=== PATIENT | male | born 1945 | race Caucasian/White ===

== ENCOUNTER 2018-05-07 20:32 | Emergency (ER) | payer MEDICARE ==
[~2018-05-07] VITALS: Ht 172.7 cm; Wt 77.1 kg
[2018-05-07 20:43] VITALS: BP 147/93
[2018-05-07] MEDS ORDERED: DEXAMETHASONE 4 MG TABLET PO ONE (21:15)
[2018-05-07] MEDS ORDERED: BUPIVAC MPF-EPI 0.5%-1:200000 30 ML VIAL. INJ ONE (21:15)
[2018-05-07] MEDS ORDERED: CLINDAMYCIN HCL 150 MG CAPSULE. PO ONE (21:15)
--- NOTE | 2018-05-07 22:46 | PHYS DOC ---
Past Medical History Past Medical History: COPD, Other Additional Past Medical Histor: chronic back pain Past Surgical History: No Surgical History Additional Past Surgical Histo: PT UNABLE TO RESPOND Alcohol Use: None Drug Use: None Adult General Chief Complaint Chief Complaint: DENTAL PROBLEM HPI HPI Patient is a 72 year old male who presents to the ER with complaint of left upper dental pain with painful swollen area of gums for the last 3 days. Pt states he has been taking his hydrocodone that is prescribed for chronic back pain for relief of the pain and he is out of his pain medication. Pt states he is not able to have more pain meds prescribed by his pain doctor until next week. He has been unable to have the tooth extracted because he does not have full payment up front for the dentist. Pt denies any nausea, vomiting, or fever. Review of Systems Review of Systems Constitutional: Denies fever or chills [] HENT: Denies nasal congestion or sore throat, reports left upper dental pain x3 days[] Respiratory: Denies change in cough or shortness of breath reports hx of copd GI: Denies nausea or vomiting Integument: Denies rash or skin lesions [] Neurologic: Denies headache, focal weakness or sensory changes [] All other systems were reviewed and found to be within normal limits, except as documented in this note. Current Medications Current Medications Current Medications Medications (Trade) Dose Ordered Sig/Masood Start Time Stop Time Status Last Admin Dose Admin Bupivacaine HCl/ Epinephrine Bitart (Sensorcain-Mpf Epi 0.5%-[id number]) 30 ml 1X ONCE 05/07/18 21:15 05/07/18 21:16 DC 05/07/18 21:32 30 ML Clindamycin HCl (Cleocin) 450 mg 1X ONCE 05/07/18 21:15 05/07/18 21:16 DC 05/07/18 21:32 450 MG Dexamethasone (Decadron) 10 mg 1X ONCE 05/07/18 21:15 05/07/18 21:16 DC 05/07/18 21:33 10 MG Allergies Allergies Allergies Coded Allergies Type Severity Reaction Last Updated Verified Penicillins Allergy Unknown 03/01/15 Yes Physical Exam Physical Exam Constitutional: Well developed, well nourished, no acute distress, non-toxic appearance. [] HENT: Normocephalic, atraumatic, bilateral external ears normal, oropharynx moist, no oral exudates, nose normal, swollen fluctuant area noted above tooth 11 consistent with dental abscess, Tooth 11 is broken and decayed [] Eyes: PERRLA, EOMI, conjunctiva normal, no discharge. [] Neck: Normal range of motion, no tenderness, supple, no stridor. [] Skin: Warm, dry, no erythema, no rash. [] Neurologic: Alert and oriented X 3, normal motor function, normal sensory function, no focal deficits noted. [] Psychologic: Affect normal, judgement normal, mood normal. [] Physical exam by Dr. Foote: Constitutional: Well developed, well nourished, anxious HENT: left lateral maxillary molar with severe dental decay due to sadie with gingival swelling and tenderness consistent for periapical abscess Neurologic: Alert and oriented X 3 Psychologic: Affect normal, judgement normal, mood anxious Current Patient Data Vital Signs Vital Signs Date Time Temp Pulse Resp B/P (MAP) Pulse Ox O2 Delivery O2 Flow Rate FiO2 05/07/18 20:43 98.3 95 18 97 Room Air 98.3 EKG EKG [] Radiology/Procedures Radiology/Procedures 220 Dr. Foote at bedside with this ORGANIZATION DEVELOPMENT CONSULTANT to perform dental block for I&D of dental abscess. PT grabbed Dr. Foote hand while medication was being injected and jumped out of chair. PT then refuses to resume procedure. [] Course & Med Decision Making Course & Med Decision Making Pertinent Labs and Imaging studies reviewed. (See chart for details) 221 pt eloped from the emergency department, refuses to come back inside for prescription of antibiotics. Pt was given 10 mg of decadon and one dose of 450 mg of clindamycin in the ER. Nursing staff advised of patient elopement. [] Dragon Disclaimer Dragon Disclaimer This electronic medical record was generated, in whole or in part, using a voice recognition dictation system. Departure Departure Impression: Primary Impression: Abscess, dental Additional Impressions: Pain, dental Eloped from emergency department Disposition: AGAINST MEDICAL ADVICE Condition: GUARDED Referrals: GEOR[place]IA ANGLIN M.D. (PCP) Attending Signature Attending Signature Patient seen and evaluated by myself. Plan for dental block and I&D. Empiric antibiotics given. Dental block started when patient grab my hand and said he was leaving. Attempted to discuss with patient, who walked out of Emergency Department. I have personally interviewed and examined the patient. All charts, labs, and imaging studies were reviewed. I agree with the PA/ORGANIZATION DEVELOPMENT CONSULTANT's findings, exam, and plan. Additional Procedures Progress Dental block by ED physician: Time out performed. Verbal consent obtained. Dental block attempted with 25 g needle and 0.5% bupivacaine with epi utilized. Patient unable to tolerate as after 1ml infiltration patient grabbed my hand and pulled needle out. No complications. Problem Qualifiers JASS NAGEL APRN May 07, 2018 22:46 FOOTE,AARON Garvey DO May 08, 2018 02:56
== END 2018-05-07 22:10 | disposition left against medical advice (07) ==
LOC: ER 20:32
DX: K04.7 Periapical abscess without sinus (principal); K08.89 Other specified disorders of teeth and supporting structures; G89.29 Other chronic pain; J44.9 Chronic obstructive pulmonary disease, unspecified; Z88.0 Allergy status to penicillin
CPT/HCPCS: 64400; 99284; J3490; J8540